=== PATIENT | female | born 1975 | race Caucasian/White ===

== ENCOUNTER 2018-06-24 19:46 | Emergency (ER) | payer OTHER ==
--- NOTE | 2018-06-24 19:54 | PDOC ---
Rapid Medical Evaluation Chief Complaint: Headache Time Seen by Provider: 06/24/18 19:52 Medical Evaluation: Allergies Allergy/AdvReac Type Severity Reaction Status Date / Time latex [Latex] Allergy Severe Rash Verified 07/22/15 06:42 Sulfa (Sulfonamide Allergy Severe Rash Verified 07/22/15 06:42 Antibiotics) [Sulfa(Sulfonamide Antibiotics)] 06/24/18 19:53 I did a brief in person evaluation on this patient. CC: Headache HPI: Pt is a 43 YO female who states she has had a right sided headache x 3 days. She denies hx of HAs, denies fever, denies nuchal rigidity. She denies this being the worst YUEN of her life or a thunderclap sensation prior to its initiation. She attempted Tylenol without success. PE: Skin: Clear Lungs: Clear Heart:RRR MS: Moves all extremities without difficulty Neuro: alert Psych: appropriate affect. Pt will proceed to [facility] for further evaluation. Discharge Disposition - Diagnosis Headache Qualifiers: Headache type: unspecified Headache chronicity pattern: acute headache Intractability: not intractable Qualified Code(s): R51 - Headache - Referrals - Patient Instructions - Post Discharge Activity
[2018-06-24 19:56] VITALS: BP 135/78; PULSE 83; TEMP 98.4; BMI 23.0
--- NOTE | 2018-06-24 20:45 | PDOC ---
History of Present Illness - General Chief Complaint: Headache Stated Complaint: RIGHT MORMON PAIN Time Seen by Provider: 06/24/18 19:52 - History of Present Illness Initial Comments: 06/24/18 20:44 43-year-old female with a past medical history significant for hypothyroidism presents for evaluation of headache 3 days unrelieved with home Tylenol. No prior history of headaches or migraines. This is new onset and unrelieved with home medications. Past History - Past Medical History Allergies/Adverse Reactions: Allergies Allergy/AdvReac Type Severity Reaction Status Date / Time latex [Latex] Allergy Severe Rash Verified 06/24/18 19:57 Sulfa (Sulfonamide Allergy Severe Rash Verified 06/24/18 19:57 Antibiotics) [Sulfa(Sulfonamide Antibiotics)] Home Medications: Ambulatory Orders Zolpidem Tartrate [Ambien] 10 mg PO HS 08/06/12 Levothyroxine [Synthroid] 125 mcg PO DAILY 08/08/12 Anemia: Yes Asthma: Yes Cancer: No Cardiac Disorders: No CVA: No COPD: No CHF: No Dementia: No Diabetes: No GI Disorders: Yes (heart burn) Disorders: No HTN: No Hypercholesterolemia: No Liver Disease: No Seizures: No Thyroid Disease: Yes (graves disease) - Surgical History Abdominal Surgery: No Appendectomy: No Cardiac Surgery: No Cholecystectomy: No Lung Surgery: No Neurologic Surgery: Yes (SPINAL FUSION) Orthopedic Surgery: Yes (RIGHT KNEE SX) - Suicide/Smoking/Psychosocial Hx Smoking History: Never smoked Have you smoked in the past 12 months: No Information on smoking cessation initiated: No Hx Alcohol Use: No Drug/Substance Use Hx: No Substance Use Type: None Hx Substance Use Treatment: No Review of Systems - Review of Systems Constitutional: Yes: Malaise. No: Chills, Diaphoresis, Fever, Night Sweats ABD/GI: Yes: Nausea. No: Vomiting Neurological: Yes: Dizziness *Physical Exam - Vital Signs Last Vital Signs Temp Pulse Resp BP Pulse Ox 98.4 F 83 18 135/78 100 06/24/18 19:54 06/24/18 19:54 06/24/18 19:54 06/24/18 19:54 06/24/18 19:54 - Physical Exam Comments: 06/24/18 20:45 HEAD: NC/AT EYES: Conjuntiva clear Ears: Canals and TM's normal NOSE: No d/c THROAT: Moist mucous membrances, oral pharanx clear, uvula midline NECK: Supple without adenopathy CARDIAC: S1 S2 LUNGS: CTA Full and Equal breath sounds ABDOMEN: Soft NT ND MS: Full ROM in all joints without edema NEUROLOGIC: No gross sensory or motor deficits, NVID SKIN: Normal color and temperature no lesions or rashes Medical Decision Making - Medical Decision Making 06/24/18 22:53 pt signed out to main ER, CT reviewed and medication ordered. *DC/Admit/Observation/Transfer Diagnosis at time of Disposition: Headache Qualifiers: Headache type: unspecified Headache chronicity pattern: acute headache Intractability: not intractable Qualified Code(s): R51 - Headache - Referrals Referrals: Donaldo Arnett MD [Primary Care Provider] - Bhargav Rubi DO [Staff Physician] - - Patient Instructions Printed Discharge Instructions: DI for Headache Additional Instructions: Return to the emergency room for worsening symptoms. Please follow-up with neurology in 1-2 days for further evaluation and treatment options of your headache. He may take Tylenol and Motrin as directed should your headache recur. - Post Discharge Activity
[2018-06-24] MEDS ORDERED: METOCLOPRAMIDE HCL INJECTION 10 MG/2 ML VIAL IVPUSH ONE (22:46)
[2018-06-24] MEDS ORDERED: KETOROLAC TROMETHAMINE 30 MG/1 ML VIAL IVPUSH ONE (22:46)
[2018-06-24] MEDS ORDERED: SODIUM CHLORIDE 0.9% 500 ML INFUS.BAG IV ONE (22:47)
[2018-06-25] MEDS ORDERED: METOCLOPRAMIDE HCL INJECTION 10 MG/2 ML VIAL ONE (00:22)
[2018-06-25] MEDS ORDERED: KETOROLAC TROMETHAMINE 30 MG/1 ML VIAL ONE (00:22)
--- NOTE | 2018-06-25 01:14 | PDOC ---
*Physical Exam - Vital Signs Last Vital Signs Temp Pulse Resp BP Pulse Ox 98.4 F 83 18 135/78 100 06/24/18 19:54 06/24/18 19:54 06/24/18 19:54 06/24/18 19:54 06/24/18 19:54 ED Treatment Course - ADDITIONAL ORDERS Additional order review: Laboratory Results 06/24/18 20:46 Urine HCG, Qual Negative - Medications Given in the ED: ED Medications Discontinued Medications Generic Name Dose Route Start Last Admin Trade Name Zoila PRN Reason Stop Dose Admin Diphenhydramine HCl 25 mg 06/24/18 22:46 06/25/18 00:42 Benadryl Injection - IVPB 06/24/18 22:47 25 mg ONCE ONE Administration Ketorolac Tromethamine 30 mg 06/24/18 22:46 06/25/18 00:42 Toradol Injection - IVPUSH 06/24/18 22:47 30 mg ONCE ONE Administration Metoclopramide HCl 10 mg 06/24/18 22:46 06/25/18 00:42 Reglan Injection - IVPUSH 06/24/18 22:47 10 mg ONCE ONE Administration Sodium Chloride 1,000 ml 06/24/18 22:47 06/25/18 00:42 Normal Saline - IV 06/24/18 22:48 1,000 ml ONCE ONE Administration Medical Decision Making - Medical Decision Making 06/25/18 02:38 no headache. will d/c home. feels better. *DC/Admit/Observation/Transfer Diagnosis at time of Disposition: Headache Qualifiers: Headache type: unspecified Headache chronicity pattern: acute headache Intractability: not intractable Qualified Code(s): R51 - Headache - Discharge Dispostion Disposition: HOME - Referrals Referrals: Bhargav Rubi DO [Staff Physician] - Donaldo Arnett MD [Primary Care Provider] - - Patient Instructions Printed Discharge Instructions: DI for Headache Additional Instructions: Return to the emergency room for worsening symptoms. Please follow-up with neurology in 1-2 days for further evaluation and treatment options of your headache. He may take Tylenol and Motrin as directed should your headache recur. - Post Discharge Activity Forms/Work/School Notes: Back to Work
== END 2018-06-25 03:56 | disposition home or self-care (01) ==
LOC: JER 19:46 → JERFT 19:46 → JER 06-25 03:56
PROC: 3E033GC Introduction of Other Therapeutic Substance into Peripheral Vein, Percutaneous Approach (ICD-10-PCS; principal; 2018-06-24)
PROC: 3E033GC Introduction of Other Therapeutic Substance into Peripheral Vein, Percutaneous Approach (ICD-10-PCS; 2018-06-24)
DX: R51 Headache (principal); E03.9 Hypothyroidism, unspecified
CPT/HCPCS: 70450-TC; 84703; 96374; 96375; 99281-25

== ENCOUNTER 2018-12-12 10:56 | Emergency (ER) | payer OTHER ==
[2018-12-12 11:12] VITALS: BP 132/83; PULSE 114; TEMP 98.5; BMI 23.0
[2018-12-12] MEDS ORDERED: CLINDAMYCIN HCL 150 MG CAPSULE (FP) PO ONE (11:23)
[2018-12-12] MEDS ORDERED: KETOROLAC TROMETHAMINE 60 MG/2 ML VIAL IM ONE (11:23)
[2018-12-12] MEDS ORDERED: CLINDAMYCIN HCL 150 MG CAPSULE (FP) ONE (11:26)
[2018-12-12] MEDS ORDERED: KETOROLAC TROMETHAMINE 60 MG/2 ML VIAL ONE (11:27)
--- NOTE | 2018-12-12 11:38 | PDOC ---
History of Present Illness - General Chief Complaint: Puncture Wound Stated Complaint: LEFT INFECTED FOOT Time Seen by Provider: 12/12/18 11:13 History Source: Patient Exam Limitations: No Limitations Past History - Past Medical History Allergies/Adverse Reactions: Allergies Allergy/AdvReac Type Severity Reaction Status Date / Time latex [Latex] Allergy Severe Rash Verified 12/12/18 11:09 Sulfa (Sulfonamide Allergy Severe Rash Verified 12/12/18 11:09 Antibiotics) [Sulfa(Sulfonamide Antibiotics)] Home Medications: Ambulatory Orders Zolpidem Tartrate [Ambien] 10 mg PO HS 08/06/12 Levothyroxine [Synthroid] 125 mcg PO DAILY 08/08/12 Clindamycin [Cleocin -] 450 mg PO Q8H #87 capsule 12/12/18 Lactobacillus Combo No.11 [Probiotic] 1 each PO DAILY #30 cap.sprink 12/12/18 Anemia: Yes Asthma: Yes Cancer: No Cardiac Disorders: No CVA: No COPD: No CHF: No Dementia: No Diabetes: No GI Disorders: Yes (heart burn) Disorders: No HTN: No Hypercholesterolemia: No Liver Disease: No Seizures: No Thyroid Disease: Yes (graves disease) - Surgical History Abdominal Surgery: No Appendectomy: No Cardiac Surgery: No Cholecystectomy: No Lung Surgery: No Neurologic Surgery: Yes (SPINAL FUSION) Orthopedic Surgery: Yes (RIGHT KNEE SX) - Immunization History Immunization Up to Date: Yes - Psycho Social/Smoking Cessation Hx Smoking History: Never smoked Have you smoked in the past 12 months: No Hx Alcohol Use: No Drug/Substance Use Hx: No Substance Use Type: None Hx Substance Use Treatment: No *Physical Exam - Vital Signs Last Vital Signs Temp Pulse Resp BP Pulse Ox 98.5 F 114 H 18 132/83 99 12/12/18 11:09 12/12/18 11:09 12/12/18 11:09 12/12/18 11:09 12/12/18 11:09 - Physical Exam General Appearance: No: Apparent Distress Extremity: positive: Other (around 3.5 x 2 cm wound along plantar surface, lateral aspect of L foot, wound with pink base and greenish exudate in center, slight erythema and warmth around wound, 2+ DP and PT pulses of LLE, no drainage from site, no crepitus, no foul odor; edges of wound slightly macerated skin) Neurologic: positive: Alert, Normal Mood/Affect Medical Decision Making - Medical Decision Making 43 y/o F hx of spinal fusion, asthma, anemia, hypothyroidism, neuropathy ( unclear cause) presents with noting wound to plantar aspect of L foot today while showering. Denies any recent trauma. Mentions due to neuropathy, did not notice wound until today. Does not take anything for neuropathy as states nothing works. Denies hx of DM. Last saw her PCP 2 months ago when everything was normal. Denies fever, drainage Plantar foot wound Site covered with xeroform, sterile gauze and kerlix dressing Given Clindamycin for possible infection Will refer to podiatry and wound clinic 12/12/18 11:36 Discharge - Discharge Information Problems reviewed: Yes Clinical Impression/Diagnosis: Wound of foot Condition: Stable Disposition: HOME - Admission No - Additional Discharge Information Prescriptions: Clindamycin [Cleocin -] 450 mg PO Q8H #87 capsule Lactobacillus Combo No.11 [Probiotic] 1 each PO DAILY #30 cap.[place] Prescription Drug Monitoring Program (I-STOP) results: I-STOP not reviewed - Follow up/Referral Referrals: Darwin Dumont MD [Staff Physician] - 3 days - Patient Discharge Instructions Patient Printed Discharge Instructions: DI for Wound Infection Additional Instructions: Thank you for choosing [facility]. It was a pleasure taking care of you. Please keep wound dry and clean Change dressing daily Take antibiotics as directed. 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 - Post Discharge Activity
== END 2018-12-12 11:51 | disposition home or self-care (01) ==
LOC: JERFT 10:56
PROC: 3E0233Z Introduction of Anti-inflammatory into Muscle, Percutaneous Approach (ICD-10-PCS; principal; 2018-12-12)
DX: S91.302A Unspecified open wound, left foot, initial encounter (principal); X58.XXXA Exposure to other specified factors, initial encounter; Y93.89 Activity, other specified; Y92.89 Other specified places as the place of occurrence of the external cause; Y99.8 Other external cause status; G62.9 Polyneuropathy, unspecified; E03.9 Hypothyroidism, unspecified; D64.9 Anemia, unspecified; J45.909 Unspecified asthma, uncomplicated; Z98.1 Arthrodesis status; Z88.2 Allergy status to sulfonamides; Z91.040 Latex allergy status
CPT/HCPCS: 96372; 99281-25

== ENCOUNTER 2019-03-27 13:07 | Inpatient (IN) | payer OTHER ==
--- NOTE | 2019-03-27 13:47 | EKG ---
Test Reason : Blood Pressure : / mmHG Vent. Rate : 099 BPM Atrial Rate : 099 BPM P-R Int : 138 ms QRS Dur : 068 ms QT Int : 340 ms P-R-T Axes : 057 068 033 degrees QTc Int : 436 ms NORMAL SINUS RHYTHM NONSPECIFIC ST ABNORMALITY ABNORMAL ECG Confirmed by KAMLA HOLDEN MD ([id number]) on 03/27/2019 1:47:11 PM Referred By: Confirmed By:KAMLA HOLDEN MD
--- NOTE | 2019-03-27 14:07 | PDOC ---
History of Present Illness <Ugo Majano - Last Filed: 03/27/19 19:26> - History of Present Illness Initial Comments: The pt is a 44F w/ a history of lumbar spinal fusion, asthma, anemia, hypothyroidism, and neuropathy who presents for evaluation of acute on chronic left chest wall pain. The pain is sharp/pressure, non-radiating, waxing/waning, non-exertional, and not exacerbated or alleviated by anything she can identify. The pain worsened today while trying to lift cat litter at the store. Today she associated nausea and NBNB vomiting x10. She also endorses entire left arm 'squeezing' today. She has been evaluated previously for this pain, was referred to Cardiology, but states that she never got the results. She denies SOB, abdominal pain, diarrhea, dysuria, hematuria Denies recent travel, OCP use, history of DVT/PE, history of ME/stroke, or family history of DVT/PT/ME/stroke PMH: Asthma, Anemia, Hypothyroidism, Neuropathy PSH: lumbar spinal fusion, thyroidectomy SH: denies x3 03/27/19 14:08 <Levy Cuevas - Last Filed: 03/30/19 11:51> - General Chief Complaint: Chest Pain Stated Complaint: CHEST PAIN Past History <Ugo Majano - Last Filed: 03/27/19 19:26> - Past Medical History Anemia: Yes Asthma: Yes Cancer: No Cardiac Disorders: No CVA: No COPD: No CHF: No Dementia: No Diabetes: No GI Disorders: Yes (heart burn) Disorders: No HTN: No Hypercholesterolemia: No Liver Disease: No Seizures: No Thyroid Disease: Yes (graves disease) - Surgical History Abdominal Surgery: No Appendectomy: No Cardiac Surgery: No Cholecystectomy: No Lung Surgery: No Neurologic Surgery: Yes (SPINAL FUSION) Orthopedic Surgery: Yes (RIGHT KNEE SX) - Immunization History Immunization Up to Date: Yes - Psycho Social/Smoking Cessation Hx Smoking History: Never smoked Have you smoked in the past 12 months: No Hx Alcohol Use: No Drug/Substance Use Hx: No Substance Use Type: None Hx Substance Use Treatment: No <Levy Cuevas - Last Filed: 03/30/19 11:51> - Past Medical History Allergies/Adverse Reactions: Allergies Allergy/AdvReac Type Severity Reaction Status Date / Time latex [Latex] Allergy Severe Rash Verified 12/12/18 11:09 Sulfa (Sulfonamide Allergy Severe Rash Verified 12/12/18 11:09 Antibiotics) [Sulfa(Sulfonamide Antibiotics)] Home Medications: Ambulatory Orders Zolpidem Tartrate [Ambien] 10 mg PO HS 08/06/12 Levothyroxine [Synthroid] 100 mcg PO DAILY 08/08/12 Butalb/Acetaminophen/Caffeine [Fioricet 50-300-40 mg Capsule] 1 each PO Q12H PRN #20 capsule 03/29/19 Magnesium Oxide [Mag-Ox -] 400 mg PO BID tablet 03/29/19 Review of Systems - Review of Systems Able to Perform ROS?: Yes Comments:: GENERAL/CONSTITUTIONAL: No fever or chills HEAD, EYES, EARS, NOSE AND THROAT: No change in vision. No change in hearing. No sore throat CARDIOVASCULAR: No shortness of breath RESPIRATORY: Denies cough, hemoptysis GASTROINTESTINAL: No diarrhea or constipation GENITOURINARY: No dysuria, frequency, or change in urination MUSCULOSKELETAL: +left chest pain; +left arm discomfort SKIN: No rash NEUROLOGIC: No headache, vertigo, loss of consciousness ENDOCRINE: No increased thirst. No abnormal weight change HEMATOLOGIC/LYMPHATIC: No anemia, easy bleeding, or history of blood clots ALLERGIC/IMMUNOLOGIC: No hives or skin allergy 03/27/19 14:03 Is the patient limited Kazakh proficient: No <Levy Cuevas - Last Filed: 03/30/19 11:51> *Physical Exam - Vital Signs Last Vital Signs Temp Pulse Resp BP Pulse Ox 98.2 F 88 18 119/87 100 03/27/19 13:14 03/27/19 15:00 03/27/19 15:00 03/27/19 15:00 03/27/19 15:00 <Ugo Majano - Last Filed: 03/27/19 19:26> - Vital Signs Last Vital Signs Temp Pulse Resp BP Pulse Ox 98.2 F 109 H 19 122/79 97 03/27/19 13:14 03/27/19 13:14 03/27/19 13:14 03/27/19 13:14 03/27/19 13:14 - Physical Exam GENERAL: Awake, alert, and oriented to person/place/time, in no acute distress HEAD: No signs of trauma, normoc ephalic, atraumatic EYES: PERRLA, EOMI, sclera anicteric, conjunctiva clear ENT: Hearing grossly normal, nares patent, oropharynx clear without exudates. Moist mucosa LUNGS: No distress, speaks in full sentences, clear to auscultation bilaterally HEART: Regular rate and rhythm, normal S1 and S2, no murmurs appreciated, peripheral pulses normal and equal bilaterally ABDOMEN: Soft, nontender, normoactive bowel sounds. No guarding, no rebound EXTREMITIES: Moves all extremities independently; LUE weakness relative to RUE ( 4/5 vs 5/5 respectively), sensation to light touch slightly decreased over left volar hand and left brachium, left forearm sensation equal to right forearm, otherwise equal b/l NEUROLOGICAL: Cranial nerves II through XII grossly intact. Normal speech, normal gait SKIN: Warm, Dry 03/27/19 14:03 <Levy Cuevas - Last Filed: 03/30/19 11:51> ED Treatment Course - LABORATORY CBC & Chemistry Diagram: 03/27/19 14:06 03/27/19 14:06 - ADDITIONAL ORDERS Additional order review: Laboratory Results 03/27/19 03/27/19 03/27/19 14:06 14:06 14:06 D-Dimer 328 Sodium 138 Potassium 3.6 Chloride 103 Carbon Dioxide 28 Anion Gap 7 L BUN 9.4 Creatinine 0.7 Est GFR (CKD-EPI)AfAm 122.13 Est GFR (CKD-EPI)NonAf 105.37 Random Glucose 108 H Calcium 8.8 Total Bilirubin 0.3 AST 19 ALT 19 Alkaline Phosphatase 91 Troponin I < 0.02 Total Protein 7.4 Albumin 3.7 03/27/19 14:06 RBC 4.20 MCV 85.2 MCHC 32.5 RDW 14.2 D MPV 9.5 Neutrophils % 67.5 Lymphocytes % 24.9 D Monocytes % 6.7 Eosinophils % 0.3 Basophils % 0.6 D - Medications Given in the ED: ED Medications Discontinued Medications Generic Name Dose Route Start Last Admin Trade Name Freq PRN Reason Stop Dose Admin Acetaminophen 1,000 mg 03/27/19 14:27 03/27/19 15:10 Ofirmev Injection - IVPB 03/27/19 14:28 1,000 mg ONCE ONE Administration Aspirin 324 mg 03/27/19 17:58 03/27/19 18:25 Asa - PO 03/27/19 17:59 324 mg ONCE ONE Administration Atorvastatin Calcium 80 mg 03/27/19 17:58 03/27/19 18:25 Lipitor - PO 03/27/19 17:59 80 mg ONCE ONE Administration Lidocaine 1 patch 03/27/19 14:55 03/27/19 15:33 Lidoderm Patch - TP 03/27/19 14:56 1 patch ONCE ONE Administration Ondansetron HCl 4 mg 03/27/19 14:27 03/27/19 15:00 Zofran Injection IVPUSH 03/27/19 14:28 4 mg ONCE ONE Administration Sodium Chloride 1,000 ml 03/27/19 14:27 03/27/19 15:00 Normal Saline - IV 03/27/19 14:28 1,000 ml ONCE ONE Administration <Ugo Majano - Last Filed: 03/27/19 19:26> - LABORATORY CBC & Chemistry Diagram: 03/28/19 05:50 03/28/19 05:50 <Levy Cuevas - Last Filed: 03/30/19 11:51> Medical Decision Making - Medical Decision Making The pt is a 44F w/ a history of lumbar spinal fusion, asthma, anemia, hypothyroidism, and neuropathy who presents for evaluation of acute on chronic left chest wall pain with left arm 'pressure' ED Course CMP, CBC, Trop I, d-dimer ECG CXR CT head ECG w/ NSR; HR 99; QTc 436; no axis deviation; no JOHN, nonspecific ST abn, abn ecg Ofirmev, Zofran, Lidoderm patch, and IVF for symptomatic relief 03/27/19 14:05 CT head pending, CT contacted twice, microblog sent after second contact Pt now at CT 03/27/19 17:08 D-dimer neg Trop I neg Case discussed w/ Dr. Villalba, will give ASA and Atorvastatin Plan for admission and MRI Dr. Villalba with eval pt in AM Microblog sent to admission 03/27/19 19:03 Pt signed out to Dr. Majano, pending admission <Levy Cuevas - Last Filed: 03/30/19 11:51> Discharge - Discharge Information Problems reviewed: Yes - Admission Yes <Ugo Majano - Last Filed: 03/27/19 19:26> - Discharge Information Problems reviewed: Yes - Admission Yes <Levy Cuevas - Last Filed: 03/30/19 11:51> - Discharge Information Clinical Impression/Diagnosis: Left arm weakness Chest pain Qualifiers: Chest pain type: unspecified Qualified Code(s): R07.9 - Chest pain, unspecified Condition: Improved Disposition: HOME
[2019-03-27] MEDS ORDERED: ACETAMINOPHEN 1000 MG/100 ML VIAL (NON FORMULARY) IVPB ONE (14:27)
[2019-03-27] MEDS ORDERED: ONDANSETRON 4 MG/2 ML VIAL IVPUSH ONE (14:27)
[2019-03-27] MEDS ORDERED: SODIUM CHLORIDE 0.9% 500 ML INFUS.BAG IV ONE (14:27)
[2019-03-27] MEDS ORDERED: ACETAMINOPHEN INJECTION 100 ML IVPB ONE (14:50)
[2019-03-27] MEDS ORDERED: ONDANSETRON 4 MG/2 ML VIAL ONE (14:50)
[2019-03-27] MEDS ORDERED: LIDOCAINE 5% TOPICAL PATCH TP ONE (14:55)
[2019-03-27 14:59] LABS: BASO % 0.6 % (0-2.0); EOS % 0.3 % (0-4.5); HEMATOCRIT 35.8 % (32.4-45.2); HEMOGLOBIN 11.6 GM/dL (10.7-15.3); LYMPH % 24.9 % (8-40); MCH 27.7 pg (25.7-33.7); MCHC 32.5 g/dl (32.0-36.0); MEAN CELL VOLUME 85.2 fl (80-96); MEAN PLT VOLUME 9.5 fl (7.5-11.1); MONO % 6.7 % (3.8-10.2); NEUT % 67.5 % (42.8-82.8); PLATELET COUNT 298 K/MM3 (134-434); RDW 14.2 % (11.6-15.6); WHITE BLOOD COUNT 9.6 K/mm3 (4.0-10.0)
[2019-03-27] MEDS ORDERED: LIDOCAINE 5% TOPICAL PATCH ONE (15:15)
[2019-03-27 15:26] LABS: ALBUMIN 3.7 g/dl (3.4-5.0); BILIRUBIN,TOTAL 0.3 mg/dL (0.2-1); BLOOD UREA NITROGEN 9.4 mg/dL (7-18); CALCIUM 8.8 mg/dL (8.5-10.1); CREATININE 0.7 mg/dL (0.55-1.3); POTASSIUM 3.6 mmol/L (3.5-5.1); TOT PROT 7.4 g/dl (6.4-8.2)
--- NOTE | 2019-03-27 16:00 | PDOC ---
Documentation entered by Marjorie Cedeño SCRIBE, acting as scribe for Juan Saunders MD. Juan Saunders MD: This documentation has been prepared by the Gala hilario Adrianna, SCRIBE, under my direction and personally reviewed by me in its entirety. I confirm that the documentation accurately reflects all work, treatment, procedures, and medical decision making performed by me. Attending Attestation - Resident Resident Name: Levy Cuevas - ED Attending Attestation I have performed the following: I have examined & evaluated the patient, The case was reviewed & discussed with the resident, I agree w/resident's findings & plan, Exceptions are as noted - HPI HPI: The patient is a 44 year old female, with a significant PMH of lumbar spinal fusion, asthma, anemia, hypothyroidism, and neuropathy, who presents to the ED for evaluation of chest pain and L arm tightness. Patient complains of left- sided chest pain, that is sharp and pressure-like in nature and causes a left arm squeezing sensation. She denies aggravating/alleviating factors. Patient also reports associated nausea and ten episodes of NBNB vomit. Denies abdominal pain. Denies YUEN. Denies neck pain/stiffness. Allergies: Penicillins Surgical History: Lumbar spinal fusion, thyroidectomy, right knee orthopedic surgery Social History: Denies EtOH, tobacco, or illicit drug use PCP: Dr. Arnett - Physicial Exam PE: GENERAL: The patient is awake, alert, and fully oriented, Nontoxic - in no acute distress. HEAD: Normocephalic, atraumatic. EYES: extraocular movements intact, sclera anicteric, conjunctiva clear. ENT: Normal voice, Moist mucous membranes. NECK: Normal range of motion, supple LUNGS: Breath sounds equal, clear to auscultation bilaterally. No wheezes, no rhonchi, no rales. HEART: Regular rate and rhythm, without murmur, rub or gallop. ABDOMEN: Soft, nontender, No guarding, no rebound.No CVA tenderness EXTREMITIES: Normal range of motion, no edema. No cyanosis. No erythema, or tenderness. NEUROLOGICAL: No facial asymmetry, Normal speech, + Slightly diminished strength in LUE and LLE PSYCH: Normal mood, normal affect. SKIN: Warm, Dry, normal turgor. - Medical Decision Making 03/27/19 16:01 44 F with chest pain and L arm tightness. Will r/o ACS and PE. Pt also found to have L sided weakness on exam. Unlikely CVA as pt without risk factors. Possible demyelinating disease. - Labs, trop, ddimer - CT head - neuro consult 03/27/19 17:[address] Villalba, who recommends MRI
[2019-03-27] MEDS ORDERED: ASPIRIN 81 MG CHEWABLE TABLETS PO ONE (17:58)
[2019-03-27] MEDS ORDERED: ATORVASTATIN CA 80 MG TABLET (FP) PO ONE (17:58)
[2019-03-27] MEDS ORDERED: ASPIRIN 81 MG CHEWABLE TABLETS ONE (18:29)
[2019-03-27] MEDS ORDERED: ATORVASTATIN CA 80 MG TABLET (FP) ONE (18:29)
--- NOTE | 2019-03-27 19:29 | PDOC ---
*Physical Exam - Vital Signs Last Vital Signs Temp Pulse Resp BP Pulse Ox 98.2 F 88 18 119/87 100 03/27/19 13:14 03/27/19 15:00 03/27/19 15:00 03/27/19 15:00 03/27/19 15:00 ED Treatment Course - LABORATORY CBC & Chemistry Diagram: 03/27/19 14:06 03/27/19 14:06 - ADDITIONAL ORDERS Additional order review: Laboratory Results 03/27/19 03/27/19 03/27/19 14:06 14:06 14:06 D-Dimer 328 Sodium 138 Potassium 3.6 Chloride 103 Carbon Dioxide 28 Anion Gap 7 L BUN 9.4 Creatinine 0.7 Est GFR (CKD-EPI)AfAm 122.13 Est GFR (CKD-EPI)NonAf 105.37 Random Glucose 108 H Calcium 8.8 Total Bilirubin 0.3 AST 19 ALT 19 Alkaline Phosphatase 91 Troponin I < 0.02 Total Protein 7.4 Albumin 3.7 03/27/19 14:06 RBC 4.20 MCV 85.2 MCHC 32.5 RDW 14.2 D MPV 9.5 Neutrophils % 67.5 Lymphocytes % 24.9 D Monocytes % 6.7 Eosinophils % 0.3 Basophils % 0.6 D - Medications Given in the ED: ED Medications Discontinued Medications Generic Name Dose Route Start Last Admin Trade Name Zoila PRN Reason Stop Dose Admin Acetaminophen 1,000 mg 03/27/19 14:27 03/27/19 15:10 Ofirmev Injection - IVPB 03/27/19 14:28 1,000 mg ONCE ONE Administration Aspirin 324 mg 03/27/19 17:58 03/27/19 18:25 Asa - PO 03/27/19 17:59 324 mg ONCE ONE Administration Atorvastatin Calcium 80 mg 03/27/19 17:58 03/27/19 18:25 Lipitor - PO 03/27/19 17:59 80 mg ONCE ONE Administration Lidocaine 1 patch 03/27/19 14:55 03/27/19 15:33 Lidoderm Patch - TP 03/27/19 14:56 1 patch ONCE ONE Administration Ondansetron HCl 4 mg 03/27/19 14:27 03/27/19 15:00 Zofran Injection IVPUSH 03/27/19 14:28 4 mg ONCE ONE Administration Sodium Chloride 1,000 ml 03/27/19 14:27 03/27/19 15:00 Normal Saline - IV 03/27/19 14:28 1,000 ml ONCE ONE Administration Medical Decision Making - Medical Decision Making Patient signed out to me pending admission to hospital for r/o stroke secondary to left arm weakness - Neuro Deejay on board - MRI in am - aspirin, statin - Spoke with admitting resident Dispo: Tele obs Discharge - Discharge Information Problems reviewed: Yes Clinical Impression/Diagnosis: Left arm weakness Chest pain Qualifiers: Chest pain type: unspecified Qualified Code(s): R07.9 - Chest pain, unspecified Condition: Stable - Admission Yes - Follow up/Referral Referrals: Donaldo Arnett MD [Primary Care Provider] - - Patient Discharge Instructions Patient Printed Discharge Instructions: DI for Chest Pain - Post Discharge Activity
--- NOTE | 2019-03-27 21:54 | HP ---
CHIEF COMPLAINT: Chest pain PCP: Dr. Melquiades Mcneil- neuro HISTORY OF PRESENT ILLNESS: 44 yo f w/ PMH Spinal fusion, asthma, anemia, hypothyroidism, peripheral neuropathy who comes into the ED c/o a 1 day history of substernal chest pain and left arm pain. Patient states that she was [place] in the [place] when she felt an acute onset of chest pain and left arm pain. These ssx were associated with nausea and approx 10 episodes of NBNB vomiting. The patient states that she has had similar episodes in the past and has told her PCP about this but no intervention other than an EKG was done as her the patient. The patient also c/o a right sided migraine which she states has been waxing and waning in intensty, but has not gone completely away over the last year. She sees dr robles as an outpatient, who prescribed her a tryptan medication for this. In the ED, the patient was found to be hemodynamically stable with normal labs and a normal CT head. ED staff noticed that she had left sided weakness on exam. Neurology was conulted from the ED and suggested treating the patient for presumed stroke and to obtain an MRI of the brain. At the time of the interview, the patient only complains of right sided headache and photophobia. Her chest pain has resolved. Recent Travel: none PAST MEDICAL HISTORY: see HPI PAST SURGICAL HISTORY: spinal fusion Social History: Smoking: denies Alcohol: denies Drugs: denies Allergies latex [Latex] Allergy (Severe, Verified 12/12/18 11:09) Rash pt states she is allergic to condoms and gets a rash and urinary tract infections from them Sulfa (Sulfonamide Antibiotics) [Sulfa(Sulfonamide Antibiotics)] Allergy (Severe , Verified 12/12/18 11:09) Rash HOME MEDICATIONS: Home Medications Medication Instructions Recorded Zolpidem Tartrate [Ambien] 10 mg PO HS 08/06/12 Levothyroxine [Synthroid] 100 mcg PO DAILY 08/08/12 REVIEW OF SYSTEMS CONSTITUTIONAL: Absent: fever, chills, diaphoresis, generalized weakness, malaise, loss of appetite, weight change HEENT: Absent: rhinorrhea, nasal congestion, throat pain, throat swelling, difficulty swallowing, mouth swelling, ear pain, eye pain, visual changes CARDIOVASCULAR: Absent: syncope, palpitations, irregular heart rate, lightheadedness, peripheral edema RESPIRATORY: Absent: cough, shortness of breath, dyspnea with exertion, orthopnea, wheezing, stridor, hemoptysis GASTROINTESTINAL: Absent: abdominal pain, abdominal distension, nausea, vomiting, diarrhea, constipation, melena, hematochezia GENITOURINARY: Absent: dysuria, frequency, urgency, hesitancy, hematuria, flank pain, genital pain MUSCULOSKELETAL: Absent: myalgia, arthralgia, joint swelling, back pain, neck pain SKIN: Absent: rash, itching, pallor HEMATOLOGIC/IMMUNOLOGIC: Absent: easy bleeding, easy bruising, lymphadenopathy, frequent infections ENDOCRINE: Absent: unexplained weight gain, unexplained weight loss, heat intolerance, cold intolerance NEUROLOGIC: Absent: dizziness, unsteady gait, seizure, mental status changes, bladder or bowel incontinence PSYCHIATRIC: Absent: anxiety, depression, suicidal or homicidal ideation, hallucinations. PHYSICAL EXAMINATION Vital Signs - 24 hr 03/27/19 03/27/19 03/27/19 13:14 14:15 15:00 Temperature 98.2 F Pulse Rate 109 H Pulse Rate [ 88 Apical] Respiratory 19 18 Rate Blood Pressure 122/79 Blood Pressure 119/87 [Right Arm] O2 Sat by Pulse 97 100 100 Oximetry (%) 03/27/19 20:01 Temperature 98.2 F Pulse Rate Pulse Rate [ 75 Apical] Respiratory Rate Blood Pressure Blood Pressure 117/73 [Right Arm] O2 Sat by Pulse 99 Oximetry (%) GENERAL: Awake, alert, and fully oriented, in no acute distress. HEAD: Normal with no signs of trauma. EYES: Pupils equal, round and reactive to light, extraocular movements intact, sclera anicteric, conjunctiva clear. No lid lag. Patient photophobic and tears when light shined in her eye. EARS, NOSE, THROAT: Ears normal, nares patent, oropharynx clear without exudates. Moist mucous membranes. LUNGS: Breath sounds equal, clear to auscultation bilaterally. No wheezes, and no crackles. No accessory muscle use. HEART: Regular rate and rhythm, normal S1 and S2 without murmur, rub or gallop. ABDOMEN: Soft, nontender, not distended, normoactive bowel sounds, no guarding, no rebound, no masses. No hepatomegaly or splenomegaly. LOWER EXTREMITIES: 2+ pulses, warm, well-perfused. No calf tenderness. No peripheral edema. NEUROLOGICAL: Cranial nerves II-X intact. Normal speech. Normal gait. Strength 5/5 on right and 4/5 on the left. Sensation nd reflexes intact. Rhomberg sign positive. SKIN: Warm, dry, normal turgor, no rashes or lesions noted, normal capillary refill. Laboratory Results - last 24 hr 03/27/19 03/27/19 03/27/19 14:06 14:06 14:06 WBC 9.6 RBC 4.20 Hgb 11.6 Hct 35.8 D MCV 85.2 MCH 27.7 MCHC 32.5 RDW 14.2 D Plt Count 298 D MPV 9.5 Absolute Neuts (auto) 6.5 Neutrophils % 67.5 Lymphocytes % 24.9 D Monocytes % 6.7 Eosinophils % 0.3 Basophils % 0.6 D Nucleated RBC % 0 D-Dimer 328 Sodium 138 Potassium 3.6 Chloride 103 Carbon Dioxide 28 Anion Gap 7 L BUN 9.4 Creatinine 0.7 Est GFR (CKD-EPI)AfAm 122.13 Est GFR (CKD-EPI)NonAf 105.37 Random Glucose 108 H Calcium 8.8 Total Bilirubin 0.3 AST 19 ALT 19 Alkaline Phosphatase 91 Troponin I Total Protein 7.4 Albumin 3.7 03/27/19 03/27/19 14:06 20:45 WBC RBC Hgb Hct MCV MCH MCHC RDW Plt Count MPV Absolute Neuts (auto) Neutrophils % Lymphocytes % Monocytes % Eosinophils % Basophils % Nucleated RBC % D-Dimer Sodium Potassium Chloride Carbon Dioxide Anion Gap BUN Creatinine Est GFR (CKD-EPI)AfAm Est GFR (CKD-EPI)NonAf Random Glucose Calcium Total Bilirubin AST ALT Alkaline Phosphatase Troponin I < 0.02 < 0.03 Total Protein Albumin ASSESSMENT/PLAN: 44 yo f w/ PMH Spinal fusion, asthma, anemia, hypothyroidism, peripheral neuropathy who comes into the ED c/o a 1 day history of substernal chest pain and left arm pain. She is being admitted to rule out CVA/TIA #Left sided weakness and positive Romberg sign likely 2/2 complex migraine, r/o cva/TIA -admit tele -CT head negative -neuro onboard -ASA, statin -MRI brain -echo, carotid dopplers -speech and swallow eval -PT eval -permissive hypertension -check TSH -Naproxyn 500mg PRN pain #Chest pain -now resolved -EKG unremarkable -trop negative x1, will rpt to r/o ACS #right sided headache -possibly migraine -tylenol prn pain -neuro eval in AM -MRI brain #FEN -no fluids indicated -lytes WNL -regular diet once patient passes bedside swallow eval #Prophy -scds # Dispo -tele inpatient -could not verify home medications as pharmacy is closed. Will resume home synthroid for now Visit type - Emergency Visit Emergency Visit: Yes ED Registration Date: 03/27/19 Care time: The patient presented to the Emergency Department on the above date and was hospitalized for further evaluation of their emergent condition. - New Patient This patient is new to me today: Yes Date on this admission: 03/27/19 - Critical Care Critical Care patient: No ATTENDING PHYSICIAN STATEMENT I saw and evaluated the patient. I reviewed the resident's note and discussed the case with the resident. I agree with the resident's findings and plan as documented. SUBJECTIVE: OBJECTIVE: ASSESSMENT AND PLAN:
--- NOTE | 2019-03-27 23:14 | PN ---
Teaching Attending Note Name of Resident: Sebastien Adler ATTENDING PHYSICIAN STATEMENT I saw and evaluated the patient. I reviewed the resident's note and discussed the case with the resident. I agree with the resident's findings and plan as documented. SUBJECTIVE: 44 year old female, with a significant PMH of lumbar spinal fusion, asthma, anemia, hypothyroidism, and neuropathy, migraines which were diagnosed 6 months ago, presented with onset of chest pain and left arm chest tightness which started around 1 PM on 03/27/2019 and lasted for a few hours. Patient was prompted to come to the ER by her . She noted that she had a cardiac nuclear stress test performed about 2 months ago as an outpatient. Does not know results however she thinks it was negative. Sees Dr. Mcneil for her migraines and he prescribed her Rizatriptan for breakthrough migraine. Patient reports that she has been having migraines on a daily basis, located to the right side of her head, about 6 out of 10 in severity presently. She says that bright lights bother her, noise bothers her. Does not take any prophylactic medications for her migraines. No family history of migraines or strokes reported. OBJECTIVE: Last Vital Signs Temp Pulse Resp BP Pulse Ox 98.2 F 75 18 117/73 99 03/27/19 20:01 03/27/19 20:01 03/27/19 15:00 03/27/19 20:01 03/27/19 20:01 GENERAL: Well developed, well nourished. Photophobia HEENT: Normocephalic, atraumatic. PERRLA, EOMI. No conjunctival pallor. Sclera are non- icteric. Moist mucous membranes. Oropharynx is clear. NECK: Supple. Full ROM. No JVD. Carotid pulses 2+ and symmetric, without bruits. No thyromegaly. No lymphadenopathy. CARDIOVASCULAR: Regular rate and rhythm. No murmurs, rubs, or gallops. Distal pulses are 2+ and symmetric. PULMONARY: No evidence of respiratory distress. Lungs clear to auscultation bilaterally. No wheezing, rales or rhonchi. ABDOMINAL: Soft. Non-tender. Non-distended. No rebound or guarding. No organomegaly. Normoactive bowel sounds. MUSCULOSKELETAL Normal range of motion at all joints. No bony deformities or tenderness. No CVA tenderness. EXTREMITIES: No cyanosis. No clubbing. No edema. No calf tenderness. SKIN: Warm and dry. Normal capillary refill. No rashes. No jaundice. NEUROLOGICAL: Alert, awake, appropriate. Cranial nerves 2-12 intact. No deficits to light touch and temperature in face, upper extremities and lower extremities. Left upper and lower extremity motor was noted to be 4 out of 5. No hyperreflexia appreciated. No sensation deficits appreciated. PSYCHIATRIC: Cooperative. Good eye contact. Appropriate mood and affect. Abnormal Lab Results 03/27/19 14:06 Anion Gap 7 L Random Glucose 108 H Imaging studies reviewed Head CT does not show any evidence of acute intracranial pathology Chest x-ray showed no active pulmonary disease Carotid Doppler showed no evidence of a high-grade carotid artery stenosis ASSESSMENT AND PLAN: 44-year-old woman with TIA, CVA should be ruled out. Some chest pain which is now resolved. TIA, CVA should be ruled out. Suspect complex migraine with left- sided hemiplegia, uncontrolled. Patient needs better migraine control possibly prophylactic medication as she is having daily symptoms. Limited therapeutic effect with Rizatriptan. Chest pain with left arm radiation however troponins were negative x2, EKG was normal. Low risk for ACS. Allegedly negative nuclear cardiac stress test 2 months ago. Admit to telemetry Neurology consult-Dr. Mcneil- Neurochecks every 4 hours Trend troponin Transthoracic echo Avoid bright lights And loud noise Naproxen 500 mg p.o. every 6 PRN if headache If passes bedside swallow eval can start diet #Hypothyroidism Continue home dose levothyroxine Send TSH #DVT prophylaxisheparin subcutaneously
[2019-03-27] MEDS ORDERED: ACETAMINOPHEN 325 MG TABLET (FP) PO PRN (23:21)
[2019-03-27] MEDS: LIDOCAINE PATCH REMOVAL MC SCH (23:32)
[2019-03-27] MEDS ORDERED: NAPROXEN 500 MG TABLET PO PRN (23:56)
[2019-03-28 00:08] VITALS: BMI 23.8
[2019-03-28] MEDS: LEVOTHYROXINE NA 100 MCG TABLET (FP) PO SCH (06:31)
[2019-03-28] MEDS ORDERED: PT OWN MED DRAWER 7, Y5N ONE (07:01)
[2019-03-28 08:05] LABS: BASO % 0.7 % (0-2.0); EOS % 0.4 % (0-4.5); HEMATOCRIT 32.8 % (32.4-45.2); HEMOGLOBIN 10.8 GM/dL (10.7-15.3); LYMPH % 19.6 % (8-40); MCH 28.2 pg (25.7-33.7); MCHC 32.9 g/dl (32.0-36.0); MEAN CELL VOLUME 85.9 fl (80-96); MEAN PLT VOLUME 9.4 fl (7.5-11.1); MONO % 5.7 % (3.8-10.2); NEUT % 73.6 % (42.8-82.8); PLATELET COUNT 275 K/MM3 (134-434); RBC 3.83 M/mm3 (3.60-5.2); RDW 14.5 % (11.6-15.6)
[2019-03-28 09:12] LABS: ALBUMIN 3.6 g/dl (3.4-5.0); BILIRUBIN,TOTAL 0.4 mg/dL (0.2-1); BLOOD UREA NITROGEN 9.4 mg/dL (7-18); CREATININE 0.6 mg/dL (0.55-1.3); PHOSPHOROUS 3.2 mg/dL (2.5-4.9); POTASSIUM 3.8 mmol/L (3.5-5.1); TOT PROT 6.7 g/dl (6.4-8.2)
--- NOTE | 2019-03-28 16:03 | CON.NEURO ---
Consult Consult Specialty:: Nova Referred by:: PCP - History of Present Illness History of Present Illness: 44-year-old right-handed female patient well known to me from the office with multiple medical problem including history of migraine headache history of dizziness history of chronic neck and lower back pain who presented to the emergency room with the sudden onset of substernal chest pain and left arm weakness patient denies any recent trauma to the neck or the lower back patient with no history of travel patient describes the left arm weakness and heaviness.patient denies any symptoms on the right side no symptoms in the left leg no difficulty swallowing patient with occasional numbness and tingling in hands. - Past Medical History ...LMP: 06/28/15 - Alcohol/Substance Use Hx Alcohol Use: No - Smoking History Smoking history: Never smoked Have you smoked in the past 12 months: No Home Medications - Allergies Allergies/Adverse Reactions: Allergies Allergy/AdvReac Type Severity Reaction Status Date / Time latex [Latex] Allergy Severe Rash Verified 12/12/18 11:09 Sulfa (Sulfonamide Allergy Severe Rash Verified 12/12/18 11:09 Antibiotics) [Sulfa(Sulfonamide Antibiotics)] - Home Medications Home Medications: Ambulatory Orders Zolpidem Tartrate [Ambien] 10 mg PO HS 08/06/12 Levothyroxine [Synthroid] 100 mcg PO DAILY 08/08/12 Family Medical History Family History: Unremarkable Review of Systems - Review of Systems Musculoskeletal: reports: Joint Pain Neurological: reports: Headache, Incoordination, Numbness, Weakness Physical Exam-Neuro Vital Signs: Vital Signs Temperature 98.6 F 03/28/19 14:33 Pulse Rate 74 03/28/19 14:33 Respiratory Rate 18 03/28/19 14:33 Blood Pressure 107/63 03/28/19 14:33 O2 Sat by Pulse Oximetry (%) 97 03/28/19 09:00 Constitutional: Yes: Well Nourished Neck: Yes: WNL Cardiovascular: Yes: WNL Labs: CBC, BMP 03/28/19 05:50 03/28/19 05:50 - Neuro Exam Level Of Consciousness: Yes: Oriented to Person, Oriented to Place, Oriented to Time Eyes: Yes: PERRLA Speech: WNL Dominant Hand: Right Cranial Nerves II-XII Intact: Yes Gag: Present DTR's: 1+ Left Bicep, 1+ Right Bicep, 1+ Left Tricep, 1+ Right Tricep Response to light touch: Abnormal Response to pain prick: Normal Response to temperature: Normal Response to vibration: Normal Motor Strength: 3/5: Left Arm, 4/5: Right Arm, Left Leg, Right Leg Gait: Deferred Imaging - Results Cat Scan: Image Reviewed Problem List - Problems (1) Complicated migraine Code(s): G43.109 - MIGRAINE WITH AURA, NOT INTRACTABLE, W/O STATUS MIGRAINOSUS Assessment/Plan 1. Agree to plan to admit the monitor. 2. Follow-up with cardiology. 3. Series of cardiac enzymes. 4. Holter monitor. 5. Magnesium 400 mg once daily. 6. Fioricet when necessary headache. Thank you very much for allowing me to be part of this patient neurological care Zachery Bhatt MD
[2019-03-28] MEDS: ONDANSETRON 4 MG/2 ML VIAL IVPUSH PRN (18:06)
--- NOTE | 2019-03-28 18:07 | PN ---
Progress Note, Physician Chief Complaint: weakness History of Present Illness: seen and examined, feeling better. denies cp, sob, palpitations, nvd, no further weakness - Current Medication List Current Medications: Active Medications Acetaminophen (Tylenol -) 650 mg PO Q6H PRN PRN Reason: PAIN LEVEL 6-10 Atorvastatin Calcium (Lipitor -) 80 mg PO HS SEAMUS Levothyroxine Sodium (Synthroid -) 100 mcg PO DAILY@0700 [facility] Last Admin: 03/28/19 06:31 Dose: 100 mcg Miscellaneous (Lidoderm Patch Removal) 1 each MC DAILY@2200 [facility] Last Admin: 03/27/19 23:32 Dose: 1 each Naproxen (Naprosyn -) 500 mg PO Q6H PRN PRN Reason: PAIN LEVEL 6-10 Last Admin: 03/28/19 00:49 Dose: 500 mg Ondansetron HCl (Zofran Injection) 4 mg IVPUSH Q6H PRN PRN Reason: NAUSEA Last Admin: 03/28/19 18:06 Dose: 4 mg - Objective Vital Signs: Vital Signs Temperature 98.6 F 03/28/19 14:33 Pulse Rate 74 03/28/19 14:33 Respiratory Rate 18 03/28/19 14:33 Blood Pressure 107/63 03/28/19 14:33 O2 Sat by Pulse Oximetry (%) 97 03/28/19 09:00 Constitutional: Yes: Well Nourished, No Distress, Calm Cardiovascular: Yes: WNL, Regular Rate and Rhythm Respiratory: Yes: WNL, Regular, CTA Bilaterally Gastrointestinal: Yes: WNL, Normal Bowel Sounds, Soft Musculoskeletal: Yes: WNL Extremities: Yes: WNL Edema: No Labs: CBC, BMP 03/28/19 05:50 03/28/19 05:50 Problem List - Problems (1) Chest pain Code(s): R07.9 - CHEST PAIN, UNSPECIFIED Qualifiers: Chest pain type: unspecified Qualified Code(s): R07.9 - Chest pain, unspecified (2) Complicated migraine Code(s): G43.109 - MIGRAINE WITH AURA, NOT INTRACTABLE, W/O STATUS MIGRAINOSUS (3) Left arm weakness Code(s): R29.898 - OTH SYMPTOMS AND SIGNS INVOLVING THE MUSCULOSKELETAL SYSTEM (4) Headache Code(s): R51 - HEADACHE Qualifiers: Headache type: unspecified Headache chronicity pattern: acute headache Intractability: not intractable Qualified Code(s): R51 - Headache Assessment/Plan ASSESSMENT: Left arm pain Chest Pain Migraines Asthma Hypothyroidism Peripheral neuropathy PLAN: -chest and arm pain resolved -trops negative -no events on tele -neuro eval -brain MRI and 2decho pending -cw current mnmgt
[2019-03-28] MEDS: MAGNESIUM OXIDE 400 MG TABLET (FP) PO SCH (21:52)
[2019-03-28] MEDS: LIDOCAINE PATCH REMOVAL MC SCH (21:52)
[2019-03-28] MEDS ORDERED: ATORVASTATIN CA 80 MG TABLET (FP) PO SCH (22:00)
[2019-03-29] MEDS: ACETAMINOPHEN/CAFFEINE/BUTALBITAL 1 TAB PO PRN ×2 (04:19→12:16)
[2019-03-29] MEDS: LEVOTHYROXINE NA 100 MCG TABLET (FP) PO SCH (06:46)
[2019-03-29] MEDS: MAGNESIUM OXIDE 400 MG TABLET (FP) PO SCH (10:13)
[2019-03-29] MEDS ORDERED: PT OWN MED DRAWER 7, Y5N ONE (10:26)
[2019-03-29 11:41] VITALS: BP 114/92; PULSE 89; TEMP 98.7
--- NOTE | 2019-03-29 11:42 | DS ---
Physical Examination Vital Signs: Vital Signs Temperature 98.7 F 03/29/19 10:00 Pulse Rate 89 03/29/19 10:00 Respiratory Rate 18 03/29/19 10:00 Blood Pressure 114/92 03/29/19 10:00 O2 Sat by Pulse Oximetry (%) 99 03/29/19 09:00 Findings/Remarks: no acute events overnight, feeling well, headaches resolved Constitutional: Yes: Well Nourished, No Distress, Calm Cardiovascular: Yes: WNL, Regular Rate and Rhythm Respiratory: Yes: WNL, Regular, CTA Bilaterally Gastrointestinal: Yes: WNL, Normal Bowel Sounds, Soft Musculoskeletal: Yes: WNL Extremities: Yes: WNL Edema: No Neurological: Yes: WNL, Alert, Oriented Labs: CBC, BMP 03/28/19 05:50 03/28/19 05:50 Discharge Summary Problems reviewed: Yes Reason For Visit: WEAKNESS Current Active Problems Chest pain (Acute) Complicated migraine (Acute) Left arm weakness (Acute) Hospital Course: 44-year-old woman presented with left arm pain, numbness. Has history of migraines. 1) Chest pain, resolved -acs ruled out, trops neg, ekg no ischemic changes -states she had stress test 2 months ago, negative -needs to follow-up with pcp and neuro outpatient 2) Complex migraines -MRI brain unremarkable -catroid duplex unremarkable -patient can do 2dechocardiogram outpatient -seen by neuro Dr. Bhatt outpatient and inpatient -[facility] PRN -Holter monitor 3) Hypothyroid on synthroid 4) HDL- LDL 111, follow up outpatient -counseling Followup with neuro and PCP outpatient 2dechocardiogram Condition: Improved - Instructions Referrals: Donaldo Arnett MD [Primary Care Provider] - Zachery Bhatt MD [Staff Physician] - Disposition: HOME - Home Medications Comprehensive Discharge Medication List: Ambulatory Orders Zolpidem Tartrate [Ambien] 10 mg PO HS 08/06/12 Levothyroxine [Synthroid] 100 mcg PO DAILY 08/08/12 Magnesium Oxide [Mag-Ox -] 400 mg PO BID tablet 03/29/19
[2019-03-29] MEDS: ONDANSETRON 4 MG/2 ML VIAL IVPUSH PRN (12:16)
--- NOTE | 2019-03-31 14:30 | HOL ---
Hook-up date: 2019-03-29 10:08:00 Duration: 24:00:00 Test Indications: TIA APPIAH Medications: 137605 QRS complexes 296 Ventricular ectopics which represent <1 % of total QRS comp. 5 Supraventricular ectopics which represent <1 % of total QRS comp. * Paced QRS complexs which represent % of total QRS comp. * % of Time Classified as Noise VENTRICULAR ECTOPY 296 Isolated 0 Bigeminal Cycles 0 Couplets 0 Runs 0 Beats in Runs * Beats LONGEST at * BPM at :: -- * Beats FASTEST at * BPM at :: -- SUPRAVENTRICULAR ECTOPY 5 Isolated 0 Couplets 0 Runs 0 Beats in Runs * Beats LONGEST at * BPM at :: -- * Beats FASTEST at * BPM at :: -- HEART RATES 62 MIN at 04:08:57 2019-03-30 94 AVG 146 MAX at 13:43:52 2019-03-29 LONGEST RR 1.304 secs at 03:23:34 2019-03-30 SCANNED BY: VIRGIL 03/31/19 Sinus rhythm with HR range of 62bpm to 146bpm Average HR 94bpm Occasional PVC's (total 296) Rare PAC's (total 5) No significant arrhythmias No significant pauses with longest R-R interval 1.3 seconds Confirmed by MD Rebecca, Elvis ([id number]) on 03/31/2019 2:30:12 PM Referred By: Yandel LUA Overread By: Elvis Fernandez MD
== END 2019-03-29 13:09 | disposition home or self-care (01) | DRG 54 ==
LOC: JER 13:07 → JERBED 21:26 → J4W 22:52
PROVIDERS: ADMIT Internal Medicine; ATTEND Internal Medicine
DX: G43.109 Migraine with aura, not intractable, without status migrainosus (principal); G62.9 Polyneuropathy, unspecified; R07.9 Chest pain, unspecified; E03.9 Hypothyroidism, unspecified; J45.909 Unspecified asthma, uncomplicated; D64.9 Anemia, unspecified; Z88.0 Allergy status to penicillin; E78.5 Hyperlipidemia, unspecified
CPT/HCPCS: 36415; 70450-TC; 70551-TC; 71045-TC-FY; 80053; 80061; 83721; 83735; 84100; 84443; 84484; 85025; 85379; 93005; 93010; 93225; 93226; 93880-TC; 99285-25; J0131

== ENCOUNTER 2019-03-31 06:30 | Emergency (ER) | payer OTHER ==
--- NOTE | 2019-03-31 07:37 | PDOC ---
History of Present Illness - General Chief Complaint: Pain, Acute Stated Complaint: PAIN Time Seen by Provider: 03/31/19 07:32 History Source: Patient Exam Limitations: No Limitations - History of Present Illness Initial Comments: 03/31/19 07:37 Keeley Dominguez is a 44F asthma, migraine, chronic neck/lumbar pain s/p lumbar fusion, peripheral neuropathy, presenting with complaint of nerve pain to arms and legs. Patient reports recent admission to [facility] for chest pain and L arm weakness, was evaluated for ACS and by neurology and found to have no concerning pathologies. Discharged home last week, says she developed a fever to 100.5F that self- resolved, but triggered 4 days of extreme and constant neuropathic pain in her arms and legs. Denies any inciting injury. Says it feels like a burning pain that is relentless and makes her highly sensitive to touch. Sees Dr. Bhatt for pain control, was formerly on Lyrica but takes no medications for pain at this time because nothing works. Usually when this happens, goes to ED for morphine or Tramadol. Denies any abdominal pain, N/V/C/D, vision changes, chest pain, SOB. Past History - Past Medical History Allergies/Adverse Reactions: Allergies Allergy/AdvReac Type Severity Reaction Status Date / Time latex [Latex] Allergy Severe Rash Verified 03/31/19 07:12 Sulfa (Sulfonamide Allergy Severe Rash Verified 03/31/19 07:12 Antibiotics) [Sulfa(Sulfonamide Antibiotics)] Home Medications: Ambulatory Orders Zolpidem Tartrate [Ambien] 10 mg PO HS 08/06/12 Levothyroxine [Synthroid] 100 mcg PO DAILY 08/08/12 Butalb/Acetaminophen/Caffeine [Fioricet 50-300-40 mg Capsule] 1 each PO Q12H PRN #20 capsule 03/29/19 Magnesium Oxide [Mag-Ox -] 400 mg PO BID tablet 03/29/19 Anemia: Yes Asthma: Yes Cancer: No Cardiac Disorders: No CVA: No COPD: No CHF: No Dementia: No Diabetes: No GI Disorders: Yes (heart burn) Disorders: No HTN: No Hypercholesterolemia: No Liver Disease: No Seizures: No Thyroid Disease: Yes (graves disease) - Surgical History Abdominal Surgery: No Appendectomy: No Cardiac Surgery: No Cholecystectomy: No Lung Surgery: No Neurologic Surgery: Yes (SPINAL FUSION) Orthopedic Surgery: Yes (RIGHT KNEE SX) - Immunization History Immunization Up to Date: Yes - Psycho Social/Smoking Cessation Hx Smoking History: Never smoked Have you smoked in the past 12 months: No Information on smoking cessation initiated: No Hx Alcohol Use: No Drug/Substance Use Hx: No Substance Use Type: None Hx Substance Use Treatment: No Review of Systems - Review of Systems Able to Perform ROS?: Yes Constitutional: Yes: Fever. No: Chills, Weakness HEENTM: No: Symptoms Reported Respiratory: No: Cough, Shortness of Breath, Wheezing Cardiac (ROS): No: Chest Pain, Irregular Heart Rate, Lightheadedness, Palpitations, Syncope ABD/GI: No: Constipated, Diarrhea, Nausea, Poor Appetite, Poor Fluid Intake, Vomiting : No: Burning, Dysuria, Discharge, Frequency, Flank Pain, Hematuria, Incontinence Musculoskeletal: Yes: Back Pain, Neck Pain Integumentary: No: Symptoms Reported Neurological: Yes: Paresthesia. No: Headache, Numbness, Tingling, Weakness, Unsteady Gait, Dizziness Endocrine: No: Symptoms Reported Hematologic/Lymphatic: No: Symptoms Reported All Other Systems: Reviewed and Negative *Physical Exam - Vital Signs Last Vital Signs Temp Pulse Resp BP Pulse Ox 98.2 F 110 H 19 140/74 99 03/31/19 06:30 03/31/19 06:30 03/31/19 06:30 03/31/19 06:30 03/31/19 06:30 - Physical Exam General Appearance: Yes: Nourished. No: Appropriately Dressed, Apparent Distress HEENT: positive: EOMI, KATHIE, Normal Voice, Symmetrical, Pharynx Normal, Hearing Grossly Normal. negative: Scleral Icterus (R), Scleral Icterus (L) Neck: positive: Supple. negative: Tender, Trachea midline, Lymphadenopathy (R) , Lymphadenopathy (L), Tender lateral, Tender midline Respiratory/Chest: positive: Lungs Clear, Normal Breath Sounds. negative: Chest Tender, Respiratory Distress, Accessory Muscle Use, Crackles, Rales, Rhonchi, Stridor, Wheezing Cardiovascular: positive: Regular Rhythm, Regular Rate Gastrointestinal/Abdominal: positive: Normal Bowel Sounds, Flat, Soft. negative : Tender, Pulsatile Mass, Guarding, Rebound Musculoskeletal: positive: Normal Inspection. negative: CVA Tenderness, Decreased Range of Motion, Vertebral Tenderness Extremity: positive: Normal Capillary Refill, Normal Inspection, Normal Range of Motion, Tender (patient reports extreme pain to light palpation), Pelvis Stable Integumentary: positive: Normal Color, Warm, Diaphoresis. 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 negative: Numbness, Sensory Deficit ED Treatment Course - LABORATORY CBC & Chemistry Diagram: 03/31/19 08:21 03/31/19 08:21 Medical Decision Making - Medical Decision Making 03/31/19 08:10 Patient presents with neuropathic pain to arms and legs, no evidence of injury or trauma, has no other concerning symptoms and VS stable. Getting IV access, CMP/CBC for evaluation of electrolyte abnormalities/ infection as trigger, and giving 0.35mg/kg IV push of ketamine for acute on chronic neuropathic pain. Checking for arrhythmia via ECG. 03/31/19 09:22 Labs notable for: - CMP WNL - CBC WNL, no infection Patient reports still having pain. Ordering Toradol and Tylenol for pain, will re-evaluate. Referral placed to pain management. 03/31/19 09:38 ECG shows NSR with HR 86, QRS 66, QTc 404, no TWI or ischemic changes. 03/31/19 09:45 Re-evaluated, mild improvement. Patient would still like morphine, advised that this is not indicated for neuropathic pain and is dangerous to give without indication. Also says that ketamine experience was unpleasant and ineffective. Stable for discharge home with pain management follow-up. Discharge - Discharge Information Problems reviewed: Yes Clinical Impression/Diagnosis: Pain Condition: Fair Disposition: HOME - Admission No - Follow up/Referral Referrals: Donaldo Arnett MD [Primary Care Provider] - Magdalena Crowe MD [Staff Physician] - - Patient Discharge Instructions Patient Printed Discharge Instructions: Neuropathic Pain Additional Instructions: Today you were evaluated for pain. We have tested your labs, and everything is normal. We have given you a medication called ketamine for your pain and it improved. Please follow-up with Dr. Lugo and pain management doctor for further management of your pain. If you experience worsening pain, chest pain, nausea, vomiting, or any other new or concerning symptoms, please return to the emergency room. - Post Discharge Activity
[2019-03-31] MEDS ORDERED: KETAMINE HCL 200 MG/20 ML VIAL IVPUSH ONE (07:51)
[2019-03-31 07:56] VITALS: TEMP 98.2; BMI 22.6
[2019-03-31] MEDS ORDERED: KETAMINE HCL 200 MG/20 ML VIAL ONE (08:06)
[2019-03-31 08:26] LABS: BASO % 0.7 % (0-2.0); EOS % 0.1 % (0-4.5); HEMATOCRIT 39.6 % (32.4-45.2); HEMOGLOBIN 13.2 GM/dL (10.7-15.3); LYMPH % 29.5 % (8-40); MCH 28.3 pg (25.7-33.7); MCHC 33.3 g/dl (32.0-36.0); MEAN CELL VOLUME 84.8 fl (80-96); MEAN PLT VOLUME 9.3 fl (7.5-11.1); MONO % 18.5 % (3.8-10.2); NEUT % 51.2 % (42.8-82.8); PLATELET COUNT 266 K/MM3 (134-434); RBC 4.67 M/mm3 (3.60-5.2); RDW 14.4 % (11.6-15.6); WHITE BLOOD COUNT 4.6 K/mm3 (4.0-10.0)
--- NOTE | 2019-03-31 08:41 | PDOC ---
Attending Attestation - Resident Resident Name: Jose Sinclairur - ED Attending Attestation I have performed the following: I have examined & evaluated the patient, The case was reviewed & discussed with the resident, I agree w/resident's findings & plan - HPI HPI: 03/31/19 08:36 44-year-old female with history of migraines, chronic neuropathic pain syndrome followed by Dr. Mcneil of neurology recently admitted for chest pain/ musculoskeletal pain with essentially negative work-up, maintained currently on as needed opiate pills for pain, presents now with exacerbation of her chronic bilateral arm and leg neuropathic pain over the last 4 days. Reports URI following her hospitalization, now resolved. Otherwise no other complaints, only pain to both arms and legs without swelling/rash/weakness. Has been taking her hydrocodone at home without relief, presents for evaluatin. No baseline maintenance pain medication, took Lyrica 10y ago but that didn't help. - Physicial Exam PE: 03/31/19 08:39 Vital signs normal, afebrile, triage heart rate noted, heart rate went home seated in chair is normal at 90. Alert, intermittent distress secondary to arm and leg pain, otherwise conversant and following commands No jaundice or pallor, pupils are equal and reactive Neck is supple Heart is regular, lungs are clear, abdomen benign Full range of motion of all 4 extremities with full strength at all joints, no swelling or rash, positive hyperesthesia, 2+ distal pulses - Medical Decision Making 03/31/19 08:40 44-year-old female with acute on chronic neuropathic pain, no evidence of underlying infectious or vascular process. Well-appearing with otherwise nonfocal exam and normal vital signs. Labs sent Strong preference for [id number] pain medications, will trial ketamine for chronic neuropathic pain Reassess, discussed disposition with Dr. Mcneil and consider referral to lead painter Heart Score/ECG Review #1 ECG reviewed & interpreted by me at: 09:04 General ECG Interpretation: Sinus Rhythm, Normal Rate (86), Normal Intervals ( qtc 404), No acute ischemic changes
[2019-03-31] MEDS ORDERED: ACETAMINOPHEN 1000 MG/100 ML VIAL (NON FORMULARY) IVPB ONE (09:00)
[2019-03-31] MEDS ORDERED: KETOROLAC TROMETHAMINE 30 MG/1 ML VIAL IVPUSH ONE (09:00)
[2019-03-31 09:01] LABS: ALBUMIN 4.3 g/dl (3.4-5.0); BILIRUBIN,TOTAL 0.3 mg/dL (0.2-1); BLOOD UREA NITROGEN 8.3 mg/dL (7-18); CALCIUM 9.1 mg/dL (8.5-10.1); CREATININE 0.8 mg/dL (0.55-1.3); POTASSIUM 3.9 mmol/L (3.5-5.1); TOT PROT 8.9 g/dl (6.4-8.2)
[2019-03-31 09:04] VITALS: BP 132/85; PULSE 92
[2019-03-31] MEDS ORDERED: KETOROLAC TROMETHAMINE 30 MG/1 ML VIAL ONE (09:05)
[2019-03-31] MEDS ORDERED: ACETAMINOPHEN INJECTION 100 ML IVPB ONE (09:05)
--- NOTE | 2019-04-01 11:23 | EKG ---
Test Reason : Blood Pressure : / mmHG Vent. Rate : 086 BPM Atrial Rate : 086 BPM P-R Int : 124 ms QRS Dur : 066 ms QT Int : 338 ms P-R-T Axes : 038 046 026 degrees QTc Int : 404 ms NORMAL SINUS RHYTHM NORMAL ECG WHEN COMPARED WITH ECG OF 27-MAR-2019 13:24, NO SIGNIFICANT CHANGE WAS FOUND Confirmed by Ganesh Vallejo MD ([id number]) on 04/01/2019 11:22:41 AM Referred By: Confirmed By:Ganesh Vallejo MD
== END 2019-03-31 10:26 | disposition home or self-care (01) ==
LOC: JER 06:30
PROC: 3E033NZ Introduction of Analgesics, Hypnotics, Sedatives into Peripheral Vein, Percutaneous Approach (ICD-10-PCS; principal; 2019-03-31)
PROC: 3E0333Z Introduction of Anti-inflammatory into Peripheral Vein, Percutaneous Approach (ICD-10-PCS; 2019-03-31)
PROC: 3E033FZ Introduction of Intracirculatory Anesthetic into Peripheral Vein, Percutaneous Approach (ICD-10-PCS; 2019-03-31)
DX: M79.2 Neuralgia and neuritis, unspecified (principal); J45.909 Unspecified asthma, uncomplicated; Z98.1 Arthrodesis status; Z88.2 Allergy status to sulfonamides; Z91.040 Latex allergy status
CPT/HCPCS: 36415; 80053; 85025; 93005; 93010; 96374; 96375; 99283-25; J0131

== ENCOUNTER 2020-10-25 14:12 | Emergency (ER) | payer OTHER ==
[2020-10-25 14:17] VITALS: BP 114/79; TEMP 98; BMI 21.4
[2020-10-25] MEDS ORDERED: DEXAMETHASONE SOD PHOSPHATE 10 MG/1 ML VIAL ONE (14:32)
[2020-10-25 14:38] VITALS: PULSE 80
[2020-10-25] MEDS ORDERED: DEXAMETHASONE 4 MG TABLET (FP) PO ONE (14:45)
== END 2020-10-25 14:41 | disposition home or self-care (01) ==
LOC: JERFT 14:12
DX: L23.7 Allergic contact dermatitis due to plants, except food (principal)
CPT/HCPCS: 99283-25

== ENCOUNTER 2021-02-03 03:47 | Emergency (ER) | payer OTHER ==
[2021-02-03 04:06] VITALS: BMI 23.0
[2021-02-03] MEDS ORDERED: ONDANSETRON 4 MG/2 ML VIAL IVPUSH ONE ×2 (04:51→09:59)
[2021-02-03] MEDS ORDERED: ACETAMINOPHEN 1000 MG/100 ML VIAL IVPB ONE (04:51)
[2021-02-03] MEDS ORDERED: SODIUM CHLORIDE 0.9% 1000 ML INFUS.BAG IV ONE (04:51)
[2021-02-03] MEDS ORDERED: ACETAMINOPHEN INJECTION 100 ML IVPB ONE (05:03)
[2021-02-03] MEDS ORDERED: ONDANSETRON 4 MG/2 ML VIAL ONE ×2 (05:03→10:04)
[2021-02-03 06:07] LABS: BASO % 0.8 % (0-2.0); EOS % 0.4 % (0-4.5); HEMATOCRIT 31.9 % (32.4-45.2); HEMOGLOBIN 10.2 GM/dL (10.7-15.3); MCH 25.5 pg (25.7-33.7); MEAN CELL VOLUME 79.7 fl (80-96); MEAN PLT VOLUME 8.6 fl (7.5-11.1); MONO % 6.6 % (3.8-10.2); NEUT % 71.2 % (42.8-82.8); PLATELET COUNT 410 10^3/uL (134-434); RBC 4.01 M/mm3 (3.60-5.2); RDW 15.5 % (11.6-15.6)
[2021-02-03 06:11] LABS: CHLORIDE 104 mmol/L (98-107); SODIUM 140 mmol/L (136-145)
[2021-02-03 06:14] LABS: ALBUMIN 3.6 g/dl (3.4-5.0); ANION GAP 8 MMOL/L (8-16); BLOOD UREA NITROGEN 11.4 mg/dL (7-18); CALCIUM 8.4 mg/dL (8.5-10.1); CO2 28 mmol/L (21-32); LIPASE 142 U/L (73-393)
[2021-02-03 06:15] LABS: GLUCOSE,RANDOM 100 mg/dL (74-106); MAGNESIUM 2.2 mg/dL (1.8-2.4)
[2021-02-03 06:17] LABS: CREATININE 0.7 mg/dL (0.55-1.3); SGOT/AST 17 U/L (15-37); SGPT/ALT 20 U/L (13-61)
[2021-02-03 06:19] LABS: BILIRUBIN,TOTAL 0.2 mg/dL (0.2-1); TOT PROT 7.6 g/dl (6.4-8.2)
[2021-02-03 06:20] LABS: ALK PHOS 103 U/L (45-117)
[2021-02-03] MEDS ORDERED: LIDOCAINE 5% TOPICAL PATCH TP ONE (06:45)
[2021-02-03] MEDS ORDERED: KETOROLAC TROMETHAMINE 15 MG/ML VIAL IVPUSH ONE (06:45)
[2021-02-03] MEDS ORDERED: LIDOCAINE 5% TOPICAL PATCH ONE (06:52)
[2021-02-03] MEDS ORDERED: KETOROLAC TROMETHAMINE 15 MG/ML VIAL ONE (06:52)
[2021-02-03 08:43] VITALS: BP 142/86; PULSE 83; TEMP 98.4
[2021-02-03] MEDS ORDERED: ACETAMINOPHEN 500 MG TABLET (FP) PO ONE (10:00)
[2021-02-03] MEDS ORDERED: diazePAM CARPU-JECT 10 MG/2 ML DISP.SYRIN IVPUSH ONE (10:28)
[2021-02-03] MEDS ORDERED: diazePAM CARPU-JECT 10 MG/2 ML DISP.SYRIN ONE (10:44)
[2021-02-03] MEDS ORDERED: ACETAMINOPHEN 325 MG TABLET (FP) ONE (10:44)
[2021-02-03] MEDS ORDERED: LIDOCAINE PATCH REMOVAL MC ONE (19:00)
== END 2021-02-03 11:28 | disposition home or self-care (01) ==
LOC: JER 03:47
PROC: 3E033GC Introduction of Other Therapeutic Substance into Peripheral Vein, Percutaneous Approach (ICD-10-PCS; principal; 2021-02-03)
DX: R07.9 Chest pain, unspecified (principal)
CPT/HCPCS: 36415; 71045-TC-FY; 71250-TC; 80053; 82550; 82553; 83690; 83735; 84484; 84703; 85025; 93005; 93010; 99285-25; C9803; J0131; U0003; U0005

== ENCOUNTER 2022-07-22 15:34 | Emergency (ER) | payer OTHER ==
[2022-07-22 15:43] VITALS: RESP 18; TEMP 98; BMI 23.5
[2022-07-22] MEDS ORDERED: LIDOCAINE 5% TOPICAL PATCH TP ONE (16:30)
[2022-07-22] MEDS ORDERED: METHOCARBAMOL 500 MG TABLET PO ONE (16:30)
[2022-07-22] MEDS ORDERED: KETOROLAC TROMETHAMINE 15 MG/ML VIAL IM ONE (16:30)
[2022-07-22] MEDS ORDERED: METHOCARBAMOL 500 MG TABLET ONE (16:38)
[2022-07-22] MEDS ORDERED: KETOROLAC TROMETHAMINE 15 MG/ML VIAL ONE (16:38)
[2022-07-22] MEDS ORDERED: LIDOCAINE 5% TOPICAL PATCH ONE (16:38)
[2022-07-22 18:10] VITALS: BP 120/73; PULSE 95
[2022-07-22] MEDS ORDERED: LIDOCAINE PATCH REMOVAL MC SCH (22:00)
== END 2022-07-22 18:19 | disposition home or self-care (01) ==
LOC: JER 15:34
PROC: 3E0233Z Introduction of Anti-inflammatory into Muscle, Percutaneous Approach (ICD-10-PCS; principal; 2022-07-22)
DX: M25.562 Pain in left knee (principal)
CPT/HCPCS: 73562-TC-LT-FY; 99284-25

== ENCOUNTER 2022-07-23 13:21 | Emergency (ER) | payer OTHER ==
[2022-07-23 13:28] VITALS: BP 114/80; PULSE 92; RESP 18; TEMP 98.1; BMI 24.3
[2022-07-23] MEDS ORDERED: ACETAMINOPHEN 500 MG TABLET (FP) PO ONE (13:49)
[2022-07-23] MEDS ORDERED: KETOROLAC TROMETHAMINE 30 MG/1 ML VIAL IM ONE (13:49)
[2022-07-23] MEDS ORDERED: ACETAMINOPHEN 500 MG TABLET (FP) ONE (13:53)
[2022-07-23] MEDS ORDERED: KETOROLAC TROMETHAMINE 30 MG/1 ML VIAL ONE (13:53)
[2022-07-23] MEDS ORDERED: LIDOCAINE 5% TOPICAL PATCH TP ONE (14:14)
[2022-07-23] MEDS ORDERED: LIDOCAINE 5% TOPICAL PATCH ONE (14:16)
[2022-07-23] MEDS ORDERED: LIDOCAINE PATCH REMOVAL MC ONE (22:00)
== END 2022-07-23 14:34 | disposition home or self-care (01) ==
LOC: JERFT 13:21
PROC: 3E0233Z Introduction of Anti-inflammatory into Muscle, Percutaneous Approach (ICD-10-PCS; principal; 2022-07-23)
DX: M25.562 Pain in left knee (principal)
CPT/HCPCS: 99284-25

== ENCOUNTER 2023-05-16 12:57 | Emergency (ER) | payer OTHER ==
[2023-05-16 13:05] VITALS: BP 138/75; PULSE 100; RESP 19; TEMP 98.6; BMI 23.0
[2023-05-16] MEDS ORDERED: ACETAMINOPHEN 325 MG TABLET (FP) ONE (14:12)
[2023-05-16] MEDS ORDERED: METHOCARBAMOL 500 MG TABLET ONE (14:12)
[2023-05-16] MEDS ORDERED: LIDOCAINE 4% PATCH TP ONE (14:13)
[2023-05-16] MEDS: ACETAMINOPHEN 500 MG TABLET (FP) PO ONE (14:20)
[2023-05-16] MEDS: METHOCARBAMOL 500 MG TABLET PO ONE (14:20)
[2023-05-16] MEDS: LIDOCAINE 4% PATCH TP ONE (14:20)
[2023-05-16] MEDS ORDERED: KETOROLAC TROMETHAMINE 30 MG/1 ML VIAL ONE (15:30)
[2023-05-16] MEDS: KETOROLAC TROMETHAMINE 30 MG/1 ML VIAL IM ONE (15:48)
[2023-05-16] MEDS ORDERED: oxyCODONE HCL 5 MG TABLET ONE (15:50)
[2023-05-16] MEDS: oxyCODONE HCL 5 MG TABLET PO ONE (15:52)
[2023-05-16] MEDS ORDERED: LIDOCAINE PATCH REMOVAL MC SCH (22:00)
== END 2023-05-16 17:20 | disposition home or self-care (01) ==
LOC: JER 12:57
PROC: 3E0233Z Introduction of Anti-inflammatory into Muscle, Percutaneous Approach (ICD-10-PCS; principal; 2023-05-16)
DX: M54.50 Low back pain, unspecified (principal); G89.29 Other chronic pain; R32 Unspecified urinary incontinence
CPT/HCPCS: 72100-TC-FY; 84703; 99284-25

== ENCOUNTER 2023-06-11 04:39 | Day surgery (SDC) | payer OTHER ==
[2023-06-05 15:05] VITALS: BMI 23.0
[2023-06-11] MEDS ORDERED: LIDOCAINE HCL/PF 1% SDV 5ML VIAL ONE (07:24)
[2023-06-11] MEDS ORDERED: BUPIVACAINE HCL/PF 0.75% 10 ML VIAL ONE (07:24)
[2023-06-11] MEDS ORDERED: DEXAMETHASONE SOD PHOSPHATE 10 MG/1 ML VIAL ONE (07:24)
[2023-06-11] MEDS ORDERED: ACETAMINOPHEN 500 MG TABLET (FP) PO PRN (10:03)
[2023-06-11] MEDS: IOHEXOL 180 MG/1 ML ML IJ ONE ×2 (11:31→11:45)
[2023-06-11] MEDS: DEXAMETHASONE SOD PHOSPHATE 10 MG/1 ML VIAL IVPUSH ONE ×2 (11:31→11:44)
[2023-06-11] MEDS: LIDOCAINE HCL 1% PRESERVATIVE FREE - 30ML VIAL IJ ONE ×2 (11:31→11:44)
[2023-06-11 13:20] VITALS: BP 136/80; PULSE 85; RESP 18; TEMP 98.7
== END 2023-06-11 12:46 | disposition home or self-care (01) ==
LOC: JASU-SURG 04:39
PROVIDERS: ATTEND Pain Medicine Pain Medicine
PROC: 3E0R3BZ Introduction of Anesthetic Agent into Spinal Canal, Percutaneous Approach (ICD-10-PCS; 2023-06-11)
PROC: 3E0R33Z Introduction of Anti-inflammatory into Spinal Canal, Percutaneous Approach (ICD-10-PCS; principal; 2023-06-11 12:15)
DX: M54.16 Radiculopathy, lumbar region (principal)
CPT/HCPCS: 76000-TC-FY; 81025; J1100

== ENCOUNTER 2023-07-07 21:20 | Emergency (ER) | payer OTHER ==
[2023-07-07 21:29] VITALS: BP 135/87; PULSE 95; RESP 18; TEMP 98.2; BMI 22.1
[2023-07-07] MEDS ORDERED: CIPROFLOXACIN 0.3% EYE DROPS 5 ML BOTTLE ONE (22:35)
[2023-07-07] MEDS: CIPROFLOXACIN HCL 0.3% OPHTH 2.5ML BOTTLE OD ONE (22:38)
== END 2023-07-07 22:45 | disposition home or self-care (01) ==
LOC: JER 21:20 → JERFT 21:20
DX: H10.9 Unspecified conjunctivitis (principal)
CPT/HCPCS: 99283-25